=== PATIENT | male | born 1965 | race Caucasian/White ===

== ENCOUNTER 2021-07-01 18:37 | Emergency (ER) | payer OTHER ==
[2021-07-01 19:31] LABS: BASOPHIL 0.8 % (0-2); EOSINOPHIL 2.6 % (0-5); HCT 39.9 % (42.0-52.0); HGB 13.4 g/dl (13.2-18.0); LYMPHOCYTE 18.1 % (15-48); MCH 30.9 pg (25.0-31.0); MCHC 33.6 g/dL (32.0-36.0); MCV 92.1 fL (78.0-100.0); MONOCYTE 13.3 % (0-12); MPV 9.7 fL (6.0-9.5); NRBC 0; PLT 211 K/uL (150-400); RBC 4.33 M/uL (4.70-6.00); RDW 12.3 % (11.5-14.0)
[2021-07-01 19:53] LABS: ALBUMIN 3.8 g/dL (3.4-5.0); BILIRUBIN - TOTAL 0.2 mg/dL (0.2-1.0); BUN/CREAT RATIO (CALC) 21.6 RATIO; CREATININE 0.88 mg/dL (0.67-1.17); GLOBULIN (CALCULATION) 3.4 g/dL; POTASSIUM 3.5 mmol/L (3.5-5.1); TOTAL PROTEIN 7.2 g/dL (6.4-8.2)
[2021-07-01] MEDS ORDERED: MEDROL 4MG DOSEP4 MG PO (21:30)
== END 2021-07-01 21:49 | disposition home or self-care (01) ==
LOC: FER 18:37
PROVIDERS: Physician Assistant
DX: M54.12 Radiculopathy, cervical region (principal); I10 Essential (primary) hypertension; Z79.899 Other long term (current) drug therapy
CPT/HCPCS: 36415; 71045; 72125; 80053; 83880; 84484; 85025; 93005